=== PATIENT | male | born 1970 | race Two or more races ===

== ENCOUNTER 2016-07-25 08:30 | Emergency (ER) | payer OTHER ==
[2016-07-25 08:42] VITALS: BP 137/85; PULSE 75; RESP 18; TEMP 98.6; O2SAT 96
--- NOTE | 2016-07-25 09:04 | UCPHY ---
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 Peak intensity 8 or 9/10. The pain worsens with bending forward or extending backward or lifting. He thinks the particular activity that has contributed most to his back pain is lifting heavy aeration device into the ATV at work. He reports the onset the pain was gradual over a day or 2 but has been steady for 2 weeks and is not improving in fact has been gradually worsening with lifting. ROS: Constitutional: No fevers or chills. No midline pain. No other injuries. Neuro: No numbness tingling weakness, bowel or bladder incontinence. 5 point ROS is otherwise negative. Smoking Status: Never smoked Physical Exam: Physical Exam Vital signs are normal. General: No acute distress Eyes: Pupils equal and react to light. Extraocular motions are intact. Lungs: No respiratory distress. Cardiac: Brisk capillary refill is intact throughout. Pulses are 2+ and symmetric in the affected extremity. Back: Patient has no midline tenderness. He has left paraspinous lumbar muscle spasm and tenderness that reproduces his symptoms more than right lumbar paraspinous tenderness. He has mild limitation or forward flexion due to pain and back extension also causes pain. Straight leg raise: Mild increase in pain with right leg at 20. Left leg is similar. Abdomen: Soft nontender Skin: No rash or pallor. Neuro: Alert and oriented x3 he maintains 2+ symmetric patellar and Achilles DTRs bilaterally. No light touch sensory deficits. She maintains 5/5 strength in great toe dorsiflexion and plantar flexion. Initial differential diagnosis: Low back strain, disc disease, bony lesion or other abnormalities. Constitutional: Initial Vital Signs Temperature (C) 37.0 C 07/25/16 08:39 Heart Rate 75 07/25/16 08:39 Respiratory Rate 18 07/25/16 08:39 Blood Pressure 137/85 H 07/25/16 08:39 O2 Sat (%) 96 07/25/16 08:39 O2 Delivery Mode Room Air Allergies/Adverse Reactions: No Known Allergies Allergy (Verified 07/25/16 08:36) Home Medications: Medication Instructions Recorded Miscellaneous Medical Supply [NO 02/29/12 HOME MEDS] Ibuprofen [Motrin (*)] 600 mg PO Q6 PRN #30 tab 07/25/16 Methocarbamol [Robaxin 750 mg (*)] 750 - 1,500 mg PO QID PRN #30 tab 07/25/16 MDM/Departure - [facility] ED Course/Re-evaluation: Findings are most consistent with repetitive low back strain. I counseled patient regarding this and demonstrated some back stretches. No evidence of cauda equina or other concerning findings. No sensory or motor deficits. - Depart Disposition: Home, Routine, Self-Care Condition: Good Instructions: Low Back Strain (ED) Additional Instructions: DX: Low back strain Plan: Ibuprofen 400-600 mg per 6 hours regularly for the next week then as needed. Methocarbamol muscle relaxants as needed. Tylenol in addition as needed for pain - 650 - 1000 mg per 4 hrs as needed - a few times per day. No driving alcohol or work on methocarbamol Starts daily stretches prior to taking muscle relaxants and Vicodin in the morning. 3-5 minutes each of: "Butterfly stretch," "Sphinx stretch", "pigeon stretch", and hamstring stretch. Avoid lifting more than 5-10 pounds until symptoms improve. No work for the next 2 days. Follow up with work comp clinic in 3-7 days. Go to the emergency department for worsening of your symptoms despite the treatment plan. Stand Alone Forms: Work Excuse Referrals: NONE *PRIMARY CARE P,. [Primary Care Provider] - As per Instructions - PQRS PQRS Measurement: NA
== END 2016-07-25 09:44 | disposition home or self-care (01) ==
LOC: CED 08:30
DX: S39.012A Strain of muscle, fascia and tendon of lower back, initial encounter (principal); Y93.H2 Activity, gardening and landscaping; X50.0XXA Overexertion from strenuous movement or load, initial encounter
CPT/HCPCS: G0463-PO